=== PATIENT | female | born 1955 | race Native Hawaiian/Other Pacific Islander ===

== ENCOUNTER 2018-07-12 16:19 | Emergency (ER) | payer OTHER ==
[~2018-07-12] VITALS: Ht 149.9 cm; Wt 113.4 kg
[~2018-07-12 16:19] MED LIST: ALBUSOL IN; ASPIRIN 81 LOW81 MG PO; BREO ELLIPTA 201 INH INH; BUSPIRONE15 MG PO; CLARITIN10 MG PO; CORRECTOL100 MG PO; DICL75TA4 PO; DULO60CA2 PO; FAMOTIDINE40 MG PO; FLONASE AL50 MCG/ACT; FORTAMET500 MG PO; HYDR-3182 PO; LIPITOR40 MG PO; METO25TA4 PO; MONTELUKAST SOD10 MG PO; NEURONTIN800 MG PO; ROPINIROLE0.5 MG PO; TRADJENTA5 M1 PO; TRICOR48 MG PO; VITAMIN D350000 UNIT PO
[2018-07-12 17:23] LABS: PLATELET COUNT 286 K/uL (152-353)
[2018-07-12 17:33] LABS: POTASSIUM 4.7 mmol/L (3.6-5.2); SODIUM 137 mmol/L (136-145)
[2018-07-12 18:25] VITALS: BP 128/78; TEMP 98
[2018-07-12] MEDS ORDERED: LIPITOR20 MG PO (19:51)
[2018-07-12] MEDS ORDERED: HYDROCHLOROT12.5 M1 PO (19:53)
[2018-07-12] MEDS ORDERED: VALSARTAN160 MG PO (19:54)
[2018-07-12] MEDS ORDERED: FLUTMIS6 INH (19:55)
[2018-07-12] MEDS ORDERED: BUSP15TAB2 PO (19:57)
[2018-07-12] MEDS ORDERED: AMITRIPTYLIN50 MG PO (19:58)
[2018-07-12] MEDS ORDERED: ESCITALOPRAM10 MG PO (19:58)
[2018-07-12] MEDS ORDERED: MONTELUKAST SOD10 MG PO (19:59)
[2018-07-12] MEDS ORDERED: FLEET ENEMA RE (20:00)
[2018-07-12] MEDS ORDERED: TYLENOL325 MG PO (20:00)
[2018-07-12] MEDS ORDERED: MILK OF MAGNESI1 SU1 PO (20:01)
[2018-07-12] MEDS ORDERED: EMOLOIN22 TOP (20:01)
[2018-07-12] MEDS ORDERED: MYLANT3 PO (20:02)
[2018-07-12] MEDS ORDERED: ALUMSUS6 PO (20:02)
[2018-07-12] MEDS ORDERED: METAMUCIL0.52 GM PO (20:03)
[2018-07-12] MEDS ORDERED: PANTOPRAZOLE 40MG TA PO (20:03)
[2018-07-12] MEDS ORDERED: NOVOLIN R U-1001 ML SC (20:04)
[2018-07-25] MEDS ORDERED: LAMICTAL25 MG PO (16:01)
[2018-07-25] MEDS ORDERED: METO25TA4 PO (16:01)
[2018-07-25] MEDS ORDERED: AMITRIPTYLIN50 MG PO (16:01)
[2018-07-25] MEDS ORDERED: BUSP5TAB2 PO (16:01)
[2018-07-25] MEDS ORDERED: LIDOPATCH TOP (16:02)
[2018-07-25] MEDS ORDERED: DULO30CA PO (16:02)
== END 2018-07-12 18:25 | disposition other institution (70) ==
LOC: ED 16:19
PROVIDERS: Emergency Medicine
DX: F28 Other psychotic disorder not due to a substance or known physiological condition (principal); Z04.6 Encounter for general psychiatric examination, requested by authority
CPT/HCPCS: 80053; 80307; 80320; 80329; 81000; 85027; 93005; 99283

== ENCOUNTER 2019-03-24 21:58 | Emergency (ER) | payer OTHER ==
[~2019-03-24] VITALS: Ht 149.9 cm; Wt 105.7 kg
[~2019-03-24 21:58] MED LIST changes: +ALUMSUS6 PO; +AMITRIPTYLIN50 MG PO; +BUSP15TAB2 PO; +BUSP5TAB2 PO; +DULO30CA PO; +EMOLOIN22 TOP; +ESCITALOPRAM10 MG PO; +FLEET ENEMA RE; +FLUTMIS6 INH; +HYDROCHLOROT12.5 M1 PO; +LAMICTAL25 MG PO; +LIDOPATCH TOP; +LIPITOR20 MG PO; +METAMUCIL0.52 GM PO; +MILK OF MAGNESI1 SU1 PO; +MYLANT3 PO; +NOVOLIN R U-1001 ML SC; +PANTOPRAZOLE 40MG TA PO; +TYLENOL325 MG PO; +VALSARTAN160 MG PO
[2019-03-24 22:41] LABS: POTASSIUM 4.3 mmol/L (3.6-5.2)
[2019-03-24 22:43] LABS: PLATELET COUNT 346 K/uL (152-353)
[2019-03-24 23:30] VITALS: BP 154/76; TEMP 97.7
[2019-03-25] MEDS ORDERED: AMITRIPTYLINE H25 MG PO (01:30)
[2019-03-25] MEDS ORDERED: BREO ELLIPTA 201 INH INH (01:33)
[2019-03-25] MEDS ORDERED: BUDESONIDE0.5 MG/2 M INH (01:37)
[2019-03-25] MEDS ORDERED: CETI10TA PO (01:39)
[2019-03-25] MEDS ORDERED: LOSA50TA PO (01:42)
[2019-03-25] MEDS ORDERED: BUSPIRONE HYDRO15 MG PO (01:45)
[2019-03-25] MEDS ORDERED: METF500T PO (01:47)
[2019-03-25] MEDS ORDERED: FORTAMET500 MG PO (01:49)
[2019-03-25] MEDS ORDERED: METO-837 PO (01:51)
[2019-03-25] MEDS ORDERED: GUAI600T70 PO (01:54)
[2019-03-25] MEDS ORDERED: SENEXON-S1 TAB PO (01:56)
[2019-03-25] MEDS ORDERED: GABA400C2 PO (01:59)
[2019-03-25] MEDS ORDERED: ROPINIROLE1 MG PO (02:03)
[2019-03-25] MEDS ORDERED: JANUVIA100 MG PO (02:05)
== END 2019-03-24 23:30 | disposition other institution (70) ==
LOC: ED 22:07
PROVIDERS: Emergency Medicine
DX: F28 Other psychotic disorder not due to a substance or known physiological condition (principal); Z04.6 Encounter for general psychiatric examination, requested by authority
CPT/HCPCS: 36415; 80053; 81000; 85027; 93005; 99285

== ENCOUNTER 2020-09-14 09:34 | Emergency (ER) | payer OTHER ==
[~2020-09-14] VITALS: Ht 147.3 cm; Wt 109.8 kg
[2020-09-14 09:34] VITALS: BP 151/49; TEMP 99.1
[~2020-09-14 09:34] MED LIST changes: +AMITRIPTYLINE H25 MG PO; +BUDESONIDE0.5 MG/2 M INH; +BUSPIRONE HYDRO15 MG PO; +CETI10TA PO; +DIVA250T PO; +DIVA500T2 PO; +GABA400C2 PO; +GUAI600T70 PO; +JANUVIA100 MG PO; +LAMO100T PO; +LOSA50TA PO; +METF500T PO; +METO-837 PO; +ROPINIROLE1 MG PO; +SENEXON-S1 TAB PO; +VITAMIN D50000 UNIT PO
[2020-09-14 09:59] LABS: PLATELET COUNT 255 K/uL (152-353)
[2020-09-14 10:05] LABS: POTASSIUM 3.7 mmol/L (3.6-5.2)
[2020-09-14] MEDS ORDERED: ARNUITY EL100 MCG/AC INH (12:18)
[2020-09-14] MEDS ORDERED: FLONASE AL50 MCG/ACT NAS (13:00)
[2020-09-14] MEDS ORDERED: METF500T PO (13:04)
[2020-09-14] MEDS ORDERED: PANTOPRAZOLE SO40 M1 PO (13:06)
[2020-09-14] MEDS ORDERED: PIOG30TA PO (13:07)
[2020-09-14] MEDS ORDERED: DOCUZEN 8.6-501 TAB PO (13:10)
[2020-09-14] MEDS ORDERED: TRADJENTA5 M1 PO (13:11)
[2020-09-14] MEDS ORDERED: FERROUS SULF325 M1 PO (13:13)
[2020-09-14] MEDS ORDERED: GRALISE600 MG PO (13:14)
[2020-09-14] MEDS ORDERED: PRAVACHOL20 MG PO (13:16)
[2020-09-14] MEDS ORDERED: QUETIAPINE50 MG PO (13:18)
[2020-09-14] MEDS ORDERED: ROPINIROLE2 M1 PO (13:19)
[2020-09-14] MEDS ORDERED: CLON0.5T36 PO (13:20)
[2020-09-14] MEDS ORDERED: TRAMADOL HYDROC50 MG PO (13:21)
[2020-09-14] MEDS ORDERED: GENTLE LAXAT5 MG PO (13:24)
[2020-09-14] MEDS ORDERED: ALBUSOL INH (13:29)
[2020-09-14] MEDS ORDERED: GERI-LANTA PO (13:34)
[2020-09-14] MEDS ORDERED: FLEET ENEMA RE (13:37)
== END 2020-09-14 10:22 | disposition still patient (30) ==
LOC: ED 09:34
PROVIDERS: Hospitalist
DX: F25.8 Other schizoaffective disorders (principal); F03.91 Unspecified dementia, unspecified severity, with behavioral disturbance; Z11.59 Encounter for screening for other viral diseases; Z04.6 Encounter for general psychiatric examination, requested by authority
CPT/HCPCS: 80053; 80164; 85027; 87635; 93005; 99283; 99285; U0003